=== PATIENT | male | born 1975 | race Caucasian/White ===

== ENCOUNTER 2021-07-05 13:37 | Emergency (ER) | payer OTHER ==
[~2021-07-05] VITALS: Ht 175.3 cm; Wt 72.7 kg
[2021-07-05] MEDS ORDERED: CefTRIAXone 1000mg IM Kit (w/lidocaine diluent) IM ONE (14:05)
[2021-07-05] MEDS ORDERED: erythromycin ophthalmic ointment 1gm tube LEFTEYE ONE (14:05)
[2021-07-05] MEDS ORDERED: iohexol 300mg/ml 100ml inj. ONE (14:13)
[2021-07-05 16:17] VITALS: BP 137/82
== END 2021-07-05 16:19 ==
LOC: ER 13:38
DX: H00.034 Abscess of left upper eyelid (principal); H57.12 Ocular pain, left eye; H53.8 Other visual disturbances
CPT/HCPCS: 70481; 96372; 99285; J0696; Q9967